=== PATIENT | male | born 1990 | race Caucasian/White ===

== ENCOUNTER 2019-01-08 22:37 | Emergency (ER) | payer BC ==
[2019-01-08] MEDS ORDERED: LIDOCAINE 4% CREAM 5 GM TUBE TOPICAL ONE (23:07)
[2019-01-08] MEDS ORDERED: ONDANSETRON 4 MG/2 ML VIAL IVP STA (23:07)
[2019-01-08] MEDS ORDERED: MORPHINE SULFATE 4 MG/ML SYRINGE IVP STA (23:07)
[2019-01-08] MEDS ORDERED: KETOROLAC 30 MG/ML 1 ML VIAL IVP STA (23:07)
[2019-01-08 23:56] LABS: Basophils # (A) 0.1 k/uL (0-0.2); Basophils % (A) 1 %; Eosinophils # (A) 0.3 k/uL (0-0.7); Eosinophils % (A) 2 %; HCT 42.6 % (39.0-53.0); Lymphocytes # (A) 3.6 k/uL (1.0-4.8); Lymphocytes % (A) 25 %; MCHC 35.2 g/dL (31.0-37.0); MCV 85.3 fL (80.0-100.0); Mean Platelet Volume 7.8; Monocytes # (A) 0.6 k/uL (0-1.0); Monocytes % (A) 5 %; Neutrophils # (A) 9.5 k/uL (1.3-7.7); Neutrophils % (A) 66 %; Platelet Count 248 k/uL (150-450); RDW 12.5 % (11.5-15.5); WBC 14.3 k/uL (3.8-10.6)
[2019-01-09 00:05] LABS: African American GFR (CKD) >90 (>60 ml/min/1.73 sqM); Anion Gap 9 mmol/L; Blood Urea Nitrogen 12 mg/dL (9-20); Calcium 9.6 mg/dL (8.4-10.2); Carbon Dioxide 22 mmol/L (22-30); Chloride 108 mmol/L (98-107); Glucose 99 mg/dL (74-99); Potassium 4.2 mmol/L (3.5-5.1); Sodium 139 mmol/L (137-145)
--- NOTE | 2019-01-09 00:27 | ED ---
General Adult HPI - General Chief complaint: Recheck/Abnormal Lab/Rx Stated complaint: Hemorroids Time Seen by Provider: 01/08/19 22:53 Source: patient, RN notes reviewed Mode of arrival: ambulatory Limitations: no limitations - History of Present Illness Initial comments: This a 28 year old male presents emergency Department chief complaint of rectal pain, hemorrhoid issues. Patient states she's had progressive symptoms over last 2-3 weeks. Patient states that he was using Tucks pads, Preparation H. Patient states that it is not helping. Patient states is at the point where he cannot see down because it so uncomfortable. He states it feels deep inside. Denies any bleeding. Patient states that her bowel movements have been loose or hard at times. Patient states it's worse when he has loose diarrhea. Patient reports no fevers chills no dysuria no hematuria - Related Data Previous Rx's Medication Instructions Recorded Hydrocortisone/Pramoxine 1 applic RECTAL BID #1 bottle 01/09/19 [Proctofoam-Hc 1%-1% Foam] Allergies Allergy/AdvReac Type Severity Reaction Status Date / Time No Known Allergies Allergy Verified 01/08/19 22:44 Review of Systems ROS Statement: Those systems with pertinent positive or pertinent negative responses have been documented in the HPI. ROS Other: All systems not noted in ROS Statement are negative. Past Medical History Additional Past Medical History / Comment(s): hemmorroid History of Any Multi-Drug Resistant Organisms: None Reported Past Surgical History: No Surgical Hx Reported Past Psychological History: No Psychological Hx Reported Smoking Status: Former smoker Past Alcohol Use History: Occasional Past Drug Use History: None Reported General Exam Limitations: no limitations General appearance: alert, in no apparent distress Head exam: Present: atraumatic, normocephalic, normal inspection Respiratory exam: Present: normal lung sounds bilaterally. Absent: respiratory distress, wheezes, rales, rhonchi, stridor Cardiovascular Exam: Present: regular rate, normal rhythm, normal heart sounds. Absent: systolic murmur, diastolic murmur, rubs, gallop, clicks GI/Abdominal exam: Present: soft, normal bowel sounds. Absent: distended, tenderness, guarding, rebound, rigid Rectal exam: Present: normal inspection, tenderness. Absent: hemorrhoids, mass Course Vital Signs 01/08/19 22:41 Temperature 97.6 F Pulse Rate 98 Respiratory 20 Rate Blood Pressure 154/91 O2 Sat by Pulse 99 Oximetry Medical Decision Making - Medical Decision Making Labs essentially unremarkable, CT does not show any inflammatory changes concerning for rectal abscess. Patient we treated for an trauma to follow-up with on-call surgery return for any worsening symptoms - Lab Data Result diagrams: 01/08/19 23:50 01/08/19 23:50 Lab Results 01/08/19 01/08/19 Range/Units 23:50 23:50 WBC 14.3 H (3.8-10.6) k/uL RBC 5.00 (4.30-5.90) m/uL Hgb 15.0 (13.0-17.5) gm/dL Hct 42.6 (39.0-53.0) % MCV 85.3 (80.0-100.0) fL MCH 30.0 (25.0-35.0) pg MCHC 35.2 (31.0-37.0) g/dL RDW 12.5 (11.5-15.5) % Plt Count 248 (150-450) k/uL Neutrophils % 66 % Lymphocytes % 25 % Monocytes % 5 % Eosinophils % 2 % Basophils % 1 % Neutrophils # 9.5 H (1.3-7.7) k/uL Lymphocytes # 3.6 (1.0-4.8) k/uL Monocytes # 0.6 (0-1.0) k/uL Eosinophils # 0.3 (0-0.7) k/uL Basophils # 0.1 (0-0.2) k/uL Sodium 139 (137-145) mmol/L Potassium 4.2 (3.5-5.1) mmol/L Chloride 108 H (98-107) mmol/L Carbon Dioxide 22 (22-30) mmol/L Anion Gap 9 mmol/L BUN 12 (9-20) mg/dL Creatinine 0.69 (0.66-1.25) mg/dL Est GFR (CKD-EPI)AfAm >90 (>60 ml/min/1.73 sqM) Est GFR (CKD-EPI)NonAf >90 (>60 ml/min/1.73 sqM) Glucose 99 (74-99) mg/dL Calcium 9.6 (8.4-10.2) mg/dL Disposition Clinical Impression: Rectal pain, Internal hemorrhoid Disposition: HOME SELF-CARE Condition: Stable Instructions (If sedation given, give patient instructions): Hemorrhoids (DC), Rectal Pain (ED) Additional Instructions: Please follow-up with surgery.Please return to the Emergency Department if symptoms worsen or any other concerns. Prescriptions: Hydrocortisone/Pramoxine [Proctofoam-Hc 1%-1% Foam] 1 applic RECTAL BID #1 bottle Is patient prescribed a controlled substance at d/c from ED?: No Referrals: Yue Jarrett MD [Primary Care Provider] - 1-2 days Kristian Bruno MD [STAFF PHYSICIAN] - 1-2 days Time of Disposition: 00:55
--- NOTE | 2019-01-09 00:41 | CT ---
EXAMINATION TYPE: CT pelvis w con DATE OF EXAM: 01/09/2019 COMPARISON: None HISTORY: pain CT DLP: 3472.9 mGycm Automated exposure control for dose reduction was used. CONTRAST: Performed with IV Contrast, patient injected with 100 mL of Isovue 300. FINDINGS: The appendix appears normal. I see no intestinal wall thickening. There is no free fluid in the pelvi s. There is no inguinal hernia. Bladder distends smoothly. There is no evidence of pelvic lymphadenop athy. There is no sign of mesenteric edema. Images through the floor the pelvis show no rectal wall t hickening or perirectal fluid. I see no bony destructive process. The lower lumbar spine is intact. B matt pelvis is intact. There is L5 spondylolysis without spondylolisthesis. Hip joints appear normal. There is no sign of hip dysplasia. IMPRESSION: THERE IS L5 SPONDYLOLYSIS WITHOUT SPONDYLOLISTHESIS. NO EVIDENCE OF A RECTAL ABNORMALITY. NO FREE FLU ID.
[2019-01-09] MEDS ORDERED: ACET/COD 300 MG/30 MG STARTER PACK 6 TAB BTL PO STA (00:54)
[2019-01-09 01:11] VITALS: BP 112/68; PULSE 81; RESP 18; TEMP 98.1
== END 2019-01-09 01:11 | disposition home or self-care (01) ==
LOC: EC 22:37
DX: K64.8 Other hemorrhoids (principal); Z87.891 Personal history of nicotine dependence
CPT/HCPCS: 36415; 80048; 85025; 72193; 99284; 96374; 96375 ×2; J2270; J2405; J1885; Q9967

== ENCOUNTER → 2019-01-29 | Day surgery (SDC) | payer BC ==
[2019-01-24 15:41] VITALS: BMI 41.2
[~2019-01-29] MED LIST: LACTATED RINGERS 1,000 ML IV SCH; LIDOCAINE 1% 20 ML VIAL (10MG/ML) FOR IV START INTRADERMA PRN; LIDOCAINE 1% INJ 10MG/ML (20 ML MDV) ONE; PROPOFOL 10 MG/ML 20 ML VIAL IV ONE
[2019-01-29 09:30] VITALS: TEMP 97.2
--- NOTE | 2019-01-29 09:46 | P.GSHP ---
History of Present Illness H&P Date: 01/29/19 Chief Complaint: GI bleed, hemorrhoids This a 28-year-old male who presents today for colonoscopy. He's had issues with rectal bleeding. He is a known history of hemorrhoids. Past Medical History Additional Past Medical History / Comment(s): internal hemmorroid History of Any Multi-Drug Resistant Organisms: None Reported Past Surgical History: No Surgical Hx Reported Additional Past Anesthesia/Blood Transfusion Reaction / Comment(s): has never had anesthesia Smoking Status: Current some day smoker - Past Family History Mother Family Medical History: No Reported History Medications and Allergies Home Medications Medication Instructions Recorded Confirmed Type Hydrocortisone/Pramoxine 1 applic RECTAL BID PRN 01/24/19 01/29/19 History [Proctofoam-Hc 1%-1% Foam] Allergies Allergy/AdvReac Type Severity Reaction Status Date / Time No Known Allergies Allergy Verified 01/29/19 09:20 Surgical - Exam Vital Signs Temp Pulse Resp BP Pulse Ox 97.2 F L 87 16 135/68 98 01/29/19 09:19 01/29/19 09:19 01/29/19 09:19 01/29/19 09:19 01/29/19 09:19 - General well developed, well nourished, no distress - Eyes PERRL - ENT normal pinna - Neck no masses - Respiratory normal expansion - Cardiovascular Rhythm: regular - Abdomen Abdomen: soft, non tender Assessment and Plan Assessment: GI bleed, hemorrhoids. We'll perform colonoscopy.
--- NOTE | 2019-01-29 09:59 | P.OP ---
Date of Procedure: 01/29/19 Preoperative Diagnosis: Hemorrhoids Postoperative Diagnosis: Internal and external hemorrhoids Procedure(s) Performed: Colonoscopy Anesthesia: MAC Surgeon: Kristian Bruno Pathology: none sent Condition: stable Disposition: PACU Description of Procedure: Patient's placed on the endoscopy table in the lateral position. He received IV sedation. Digital rectal exam was performed which revealed internal and external hemorrhoids. The flexible colonoscope was then placed patient anus and passed throughout the entire colon. The ileocecal valve was visualized. Cecum appeared normal. Scope was then brought back the ascending colon, transverse colon and descending colon appeared normal. The sigmoid colon and rectum appeared normal. Scope was withdrawn for patient. There were internal and external hemorrhoids noted.
[2019-01-29 10:03] VITALS: RESP 17
[2019-01-29 10:16] VITALS: BP 113/72; PULSE 78
== END | disposition home or self-care (01) ==
LOC: ORWHC2ENDO 08:41
PROVIDERS: ATTEND Surgery
DX: K64.8 Other hemorrhoids (principal); K64.4 Residual hemorrhoidal skin tags; F17.200 Nicotine dependence, unspecified, uncomplicated
CPT/HCPCS: 45378; J2001; J2704

== ENCOUNTER 2019-03-07 07:35 | Day surgery (SDC) | payer BC ==
[2019-03-06 10:09] VITALS: BMI 40.6
[~2019-03-07 07:35] MED LIST changes: +DEXAMETHASONE SOD PHOSPHATE 10 MG/ML 1 ML VIAL IV ONE; +HEPARIN SODIUM,PORCINE 5,000 UNIT/ML 1 ML VIAL SQ ONE; +HYDROmorphone 0.5 MG/0.5 ML SYRINGE IVP PRN; -LIDOCAINE 1% 20 ML VIAL (10MG/ML) FOR IV START INTRADERMA PRN; -LIDOCAINE 1% INJ 10MG/ML (20 ML MDV) ONE; +MIDAZOLAM 2 MG/2 ML VIAL IV PRN; +ONDANSETRON 4 MG/2 ML VIAL IVP ONE; -PROPOFOL 10 MG/ML 20 ML VIAL IV ONE; +Pre Op ABX Message 1 EACH MISC MISCELLANE ONE; +SCOPOLAMINE 1.5MG/72HR PATCH TRANSDERM ONE
[2019-03-07 08:06] VITALS: RESP 16
[2019-03-07] MEDS ORDERED: NA PHOS,M-B/NA PHOS,DI-BA 133 ML ENEMA RECTAL ONE (08:15)
--- NOTE | 2019-03-07 08:48 | P.GSHP ---
History of Present Illness H&P Date: 03/07/19 Chief Complaint: internal hemorrhoids this a 28 she'll male who has developed rectal pain and bleeding and itching from introduction for 3 patient rents today for ehemorrhoidectomy Past Medical History Additional Past Medical History / Comment(s): internal hemorrhoid History of Any Multi-Drug Resistant Organisms: None Reported Past Surgical History: No Surgical Hx Reported Additional Past Surgical History / Comment(s): COLONOSCOPY Past Anesthesia/Blood Transfusion Reactions: No Reported Reaction Additional Past Anesthesia/Blood Transfusion Reaction / Comment(s): has never had anesthesia Smoking Status: Former smoker - Past Family History Mother Family Medical History: No Reported History Medications and Allergies Home Medications Medication Instructions Recorded Confirmed Type Hydrocortisone/Pramoxine 1 applic RECTAL BID PRN 01/24/19 03/07/19 History [Proctofoam-Hc 1%-1% Foam] Allergies Allergy/AdvReac Type Severity Reaction Status Date / Time No Known Allergies Allergy Verified 03/07/19 07:55 Surgical - Exam Vital Signs Temp Pulse Resp BP Pulse Ox 97.1 F L 73 16 133/75 96 03/07/19 08:04 03/07/19 08:04 03/07/19 08:04 03/07/19 08:04 03/07/19 08:04 - General well developed, well nourished, no distress - Eyes PERRL - ENT normal pinna - Neck no masses - Respiratory normal expansion - Cardiovascular Rhythm: regular - Abdomen Abdomen: soft, non tender - Rectum internal and external hemorrhoids Assessment and Plan Assessment: internal and external hemorrhoids. We'll perform hemorrhoidectomy
[2019-03-07] MEDS ORDERED: fentaNYL (PF) 50 MCG/ML 2 ML AMP ONE (09:01)
[2019-03-07] MEDS ORDERED: MIDAZOLAM 2 MG/2 ML VIAL ONE (09:01)
[2019-03-07] MEDS ORDERED: PROPOFOL 10 MG/ML 20 ML VIAL IV ONE (09:01)
[2019-03-07] MEDS ORDERED: KETAMINE 10 MG/ML 20 ML VIAL ONE (09:01)
[2019-03-07] MEDS ORDERED: GLYCOPYRROLATE 0.2 MG/ML 2 ML VIAL ONE (09:01)
[2019-03-07] MEDS ORDERED: BUPIVACAIN-EPI 0.25%-1:200,000 30 ML VIAL SQ ONE (09:05)
[2019-03-07] MEDS ORDERED: GELATIN SPONGE,ABSORB (SMALL) 1 EACH SPONGE TOPICAL ONE (09:32)
--- NOTE | 2019-03-07 09:42 | P.OP ---
Date of Procedure: 03/07/19 Preoperative Diagnosis: internal and external hemorrhoids Postoperative Diagnosis: internal and external hemorrhoids Procedure(s) Performed: internal and external hemorrhoidectomy Anesthesia: MAC Surgeon: Kristian Bruno Pathology: other (internal and external hemorrhoids) Condition: stable Disposition: PACU Description of Procedure: patient's placed on the operating table in the prone jackknife position. He received IV sedation. Digital rectal exam was performed. The anus was anesthetized 1% local Xylocaine. The patient had a large left hemorrhoidal column and a right anterior hemorrhoidal column. The aretractor was placed in the anus. In the left hemorrhoidal GRASPED with a pair of Allis clamps. Using Harmonic scissors the rectus performed. Next the right anterior hemorrhoid column was grasped and removed in identical fashion. The Bovie was used for hemostasis. The wound was packed with Gelfoam. Patient top she will was sent to recovery in stable condition.
[2019-03-07 09:52] VITALS: TEMP 97
[2019-03-07 10:43] VITALS: BP 110/65; PULSE 86
== END 2019-03-07 11:03 | disposition home or self-care (01) ==
LOC: OR 07:35
PROVIDERS: ATTEND Surgery
DX: K64.8 Other hemorrhoids (principal); Z87.891 Personal history of nicotine dependence; E66.9 Obesity, unspecified; Z68.41 Body mass index [BMI] 40.0-44.9, adult
CPT/HCPCS: 88304; 46260; J2250; J1644; J1100; J2405; J3010; J2704